=== PATIENT | male | born 1995 | race Caucasian/White ===

== ENCOUNTER 2019-09-30 19:15 | Emergency (ER) | payer OTHER ==
[~2019-09-30] VITALS: Ht 172.7 cm; Wt 59.0 kg
[2019-09-30 19:19] VITALS: BP 147/98
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
--- NOTE | 2019-09-30 19:34 | NUR ---
[facility] CHAIRSIDE CLEANING PATIENT WOUNDS.
--- NOTE | 2019-09-30 19:35 | NUR ---
PT WOUND IRRIGATED WITH NORMAL SALINE
[2019-09-30] MEDS ORDERED: IBUPROFEN 600 MG TAB PO ONE (20:00)
--- NOTE | 2019-09-30 20:04 | NUR ---
PATIENT TAKEN BY WHEELCHAIR TO XRAY. WILL MEDICATE UPON RETURN.
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
[2019-09-30 20:43] VITALS: BP 142/95
--- NOTE | 2019-09-30 21:01 | NUR ---
Patient discharged with v/s stable. Written and verbal after care instructions given and explained. Patient verbalized understanding. Ambulatory with steady gait, escorted by amy ADEN. All questions addressed prior to discharge. Advised to follow up with PMD.
== END 2019-09-30 21:00 ==
LOC: MED 19:15
DX: S05.12XA Contusion of eyeball and orbital tissues, left eye, initial encounter (principal); S00.412A Abrasion of left ear, initial encounter; Z02.89 Encounter for other administrative examinations; X58.XXXA Exposure to other specified factors, initial encounter; Y93.89 Activity, other specified; Y92.89 Other specified places as the place of occurrence of the external cause; Y99.8 Other external cause status
CPT/HCPCS: 71045; 99283

== ENCOUNTER 2024-07-04 21:38 | Emergency (ER) | payer OTHER ==
[~2024-07-04] VITALS: Ht 172.7 cm; Wt 59.0 kg
[2024-07-04 21:42] VITALS: BP 136/89; PULSE 114; RESP 20; TEMP 97.5; O2SAT 100
[2024-07-04] MEDS: LORazepam 1 MG TAB PO ONE (21:57)
[2024-07-04] MEDS ORDERED: ATA25 PO (23:28)
[2024-07-04 23:35] VITALS: BP 120/89; PULSE 86; RESP 17; TEMP 97.8; O2SAT 100
== END 2024-07-04 23:35 | disposition home or self-care (01) ==
LOC: MED 21:38
DX: F14.10 Cocaine abuse, uncomplicated (principal); F41.9 Anxiety disorder, unspecified; F10.90 Alcohol use, unspecified, uncomplicated; Z71.6 Tobacco abuse counseling; Z79.899 Other long term (current) drug therapy; Y90.9 Presence of alcohol in blood, level not specified
CPT/HCPCS: 93005; 99283; 99406